=== PATIENT | female | born 1975 | race Caucasian/White ===

== ENCOUNTER → 2017-03-07 | Outpatient (CLI) | payer OTHER ==
[~2017-03-07] MED LIST: BUPROPION HCL150 M1 PO; CILOXAN 5 ML5 M1 OP; CLEOCIN HCL150 MG PO; DIFLUCAN150 MG PO; FUROSEMIDE40 MG PO; GABAPENTIN400 MG PO; MOBIC7.5 MG PO
== END | disposition home or self-care (01) ==
LOC: RAD 12:25
DX: M54.6 Pain in thoracic spine (principal)

== ENCOUNTER → 2024-09-02 | Outpatient (CLI) | payer BC | END | disposition home or self-care (01) | LOC: US 08:46 → MAMMO 10:00 | PROVIDERS: ATTEND Family Medicine | DX: Z12.31 Encounter for screening mammogram for malignant neoplasm of breast (principal); N83.291 Other ovarian cyst, right side; R92.323 Mammographic fibroglandular density, bilateral breasts; R10.2 Pelvic and perineal pain ==

== ENCOUNTER → 2024-10-26 | Outpatient (CLI) | payer BC ==
[2024-10-26 11:54] LABS: BUN 9 mg/dl (9-23); SGPT/ALT 149 U/L (5-49)
== END | disposition home or self-care (01) ==
LOC: LAB 10:58
PROVIDERS: ATTEND Family Medicine
DX: L51.9 Erythema multiforme, unspecified (principal)

== ENCOUNTER → 2024-12-18 | Outpatient (CLI) | payer BC ==
[2024-12-18 11:10] LABS: MEAN CELL VOLUME 86.3 fl (81.0-99.0); MEAN CORPUSCULAR HGB 29.1 pg (27.0-31.0); MEAN PLATELET VOLUME 10.1 fl (9.6-12.3); NUCLEATED RED BLOOD CELL 0.0 % (0.0-0.0); NUCLEATED RED BLOOD CELL 0.0 10*3/uL (0.0-0.0); PLATELET COUNT AUTOMATED 250.0 10*3/uL (130-400); RED CELL DISTRI WIDTH 13.0 % (0-14.5)
[2024-12-18 11:30] LABS: BUN 11 mg/dl (9-23); GAMMA GLUTAMYL TRANSFERASE 23 U/L (0-38); SGPT/ALT 29 U/L (5-49)
== END | disposition home or self-care (01) ==
LOC: LAB 10:36
PROVIDERS: ATTEND Family Medicine
DX: R53.83 Other fatigue (principal)

== ENCOUNTER → 2025-01-01 | Outpatient (CLI) | payer BC | END | disposition home or self-care (01) | LOC: LAB 10:25 | PROVIDERS: ATTEND Family Medicine | DX: E74.9 Disorder of carbohydrate metabolism, unspecified (principal) ==